=== PATIENT | male | born 1945 | race Caucasian/White ===

== ENCOUNTER → 2018-09-02 | Outpatient (CLI) | payer MEDICARE | END | disposition home or self-care (01) | LOC: RAH 11:19 | PROVIDERS: ATTEND Neurological Surgery | DX: M47.812 Spondylosis without myelopathy or radiculopathy, cervical region (principal); M85.88 Other specified disorders of bone density and structure, other site | CPT/HCPCS: 72052 ==

== ENCOUNTER → 2023-03-14 | Outpatient (CLI) | payer MEDICARE | END | disposition home or self-care (01) | LOC: RAH 14:04 | PROVIDERS: ATTEND Internal Medicine | DX: S00.03XD Contusion of scalp, subsequent encounter (principal); W19.XXXD Unspecified fall, subsequent encounter | CPT/HCPCS: 70450 ==

== ENCOUNTER → 2025-03-03 | Outpatient (CLI) | payer MEDICARE ==
--- NOTE | 2025-03-03 17:17 | HMCIMG ---
EXAM: MR Brain without Intravenous Contrast. CLINICAL HISTORY: 80-year-old male altered mental status. TECHNIQUE: Magnetic resonance images of the brain without intravenous contrast in multiple planes. CONTRAST: None. COMPARISON: 03/14/2023 CT Brain. FINDINGS: BRAIN: No restricted diffusion to indicate acute infarction. No intracranial mass or hemorrhage. No midline shift or extra-axial fluid collection. No cerebellar tonsillar ectopia. No abnormal enhancement. The central arterial and venous flow voids are patent. Moderate atrophy. Mild chronic ischemic changes similar to prior CT Brain 03/14/2023. VENTRICLES: No hydrocephalus. ORBITS: The orbits are normal. SINUSES AND MASTOIDS: Mild mucoperiosteal thickening of the ethmoid sinuses. BONES: No acute fracture or focal osseous lesion. IMPRESSION: 1. No acute findings. 2. Moderate atrophy and mild chronic ischemic changes, similar to prior CT Brain 03/14/2023. 3. Mild mucoperiosteal thickening of the ethmoid sinuses. /[place]
== END | disposition home or self-care (01) ==
LOC: RAH 15:16
PROVIDERS: ATTEND Internal Medicine
DX: I67.82 Cerebral ischemia (principal); G31.9 Degenerative disease of nervous system, unspecified; J34.89 Other specified disorders of nose and nasal sinuses; R41.82 Altered mental status, unspecified
CPT/HCPCS: 70551